=== PATIENT | female | born 1950 | race Caucasian/White ===

== ENCOUNTER 2023-08-22 17:02 | Emergency (ER) | payer MEDICARE, SELFPAY ==
--- NOTE | ~2023-08-22 | XR_ITS ---
Left wrist Technique: PA and lateral views were obtained. Clinical History: Injury Findings: There is an acute fracture the distal radius, probably transverse in orientation, with long itudinal fracture line extending to the articular surface. Fracture is minimally displaced overall, t camryn there is mild dorsal displacement of the dorsal fragment on lateral view. No other fracture shawn ntified. There is moderate to advanced degenerative change of the first CMC joint. Remaining joint sp aces are preserved. Soft tissues are unremarkable. Impression: Acute comminuted, mildly displaced fracture the distal radius with intra-articular extension, as deta iled above. Moderate to advanced degenerative change of the first CMC joint. Reviewed, dictated and finalized at location M. R PURIFIER Impression: Acute comminuted, mildly displaced fracture the distal radius with intra-articu lar extension, as detailed above. Moderate to advanced degenerative change of the first CMC joint.
--- NOTE | ~2023-08-22 | XR_ITS ---
EXAMINATION: XR wrist LT 2V DATE: 08/22/2023 22:36 INDICATION: Distal left radius fracture status post reduction. TECHNIQUE: 2 views of left wrist were obtained. COMPARISON: Left wrist radiographs 08/22/2023 FINDINGS: There is a comminuted fractures of distal radius with involvement of the distal articular s urface and distal radioulnar joint. The main distal fracture fragment demonstrates impaction and dors al angulation. There is 17 degrees dorsal tilt of the distal articular surface. There is severe osteo arthritis of triscaphe joint and first carpometacarpal joint. IMPRESSION: 1. Comminuted fracture of distal radius. 2. Polyarticular osteoarthritis. Reviewed, dictated and finalized at location A. S ORDER PROCESSOR
--- NOTE | ~2023-08-22 | XR_ITS ---
Left Hand Technique: PA, oblique, and lateral views were obtained. Clinical History: Injury Findings: No acute fracture or dislocation is seen in the hand itself. There is a comminuted mildly d isplaced fracture the distal radius. There is advanced degenerative change of the first CMC joint. Th ere is mild degenerative change of the DIP joints. Soft tissues are unremarkable. Impression: No fracture or dislocation of the hand itself. Comminuted, mildly displaced, intra-articular fracture of the distal radius. Please refer to separate ly reported wrist radiographic series for further details. Degenerative changes, as above. Reviewed, dictated and finalized at location M. LEAD Impression: No fracture or dislocation of the hand itself. Comminuted, mildly displaced, intra-articular fracture of the distal radius. Pl ease refer to separately reported wrist radiographic series for further details . Degenerative changes, as above.
--- NOTE | ~2023-08-22 | CT_ITS ---
Non-contrast Head CT History: Status post fall Technique: Axial non-contrast imaging of the brain was performed. Dose reduction technique was used on this scan by utilizing automated exposure control and iterative reconstruction technique. The dose -length product (DLP) was 681.00 mGy-cm. Findings: There is no evidence of intracranial hemorrhage, mass lesion, or acute infarct. Brain par enchyma appears normal. The ventricles and subarachnoid spaces are normal in size. The calvarium ap pears normal. The visualized paranasal sinuses and mastoid air cells are clear. There is left fronta l scalp soft tissue swelling. Impression: No intracranial abnormality seen. Left frontal scalp soft tissue swelling. Reviewed, dictated and finalized at location . ER DRIVER Impression: No intracranial abnormality seen. Left frontal scalp soft tissue swelling.
--- NOTE | ~2023-08-22 | CT_ITS ---
Noncontrast CT scan of the cervical spine Technique: Multiple contiguous axial [address] images of the cervical spine were obtained and rec onstructed in 2D sagittal and coronal planes on the acquisition scanner. Dose reduction technique was used on this scan by utilizing automated exposure control, adjustment of the mA and/or kV according to patient size. The dose-length product (DLP) was 433.45 mGy-cm. Clinical History: Pain Findings: No acute fracture. There is a 5 mm anterolisthesis of C7 over T1. There is 3 mm retrolisthe sis of C3 over C4. There is advanced degenerative disc narrowing throughout the cervical spine, relat ively sparing C2-C3. There is right neural foraminal narrowing at C3-C4 with mild disc osteophyte com plex and facet arthropathy present. Probable mild canal stenosis at C3-C4. There is bilateral neural foraminal narrowing at C4-C5, with mild facet arthropathy and mild disc osteophyte complex. There is severe left neural foraminal narrowing at C5-C6 with prominent left facet arthropathy. There is a pro bable bilateral neural foraminal narrowing at C6-C7 with mild disc osteophyte complex present. There is probable mild canal stenosis at C6-C7. No prevertebral soft tissue swelling. Impression: No acute fracture. 5 mm anterolisthesis of C7 over T1. 3 mm retrolisthesis of C3 over C4. Moderate to advanced degenerative spondylosis, as above. Reviewed, dictated and finalized at [facility]. GATION INSTALLATION SPECIALIST Impression: No acute fracture. 5 mm anterolisthesis of C7 over T1. 3 mm retrolisthesis of C3 over C4. Moderate to advanced degenerative spondylosis, as above.
[2023-08-22 17:10] VITALS: BP 196/114; PULSE 95; RESP 20; TEMP 36.6; O2SAT 96
--- NOTE | 2023-08-22 20:04 | ED.GENADULT ---
HPI - General Adult General Chief complaint: Fall Stated complaint: HEAD INJURY Time Seen by Provider: 08/22/23 19:21 History of Present Illness HPI narrative: This is a 73-year-old female presenting with a ground level fall. She tripped and hit her forehead on a step. No loss of consciousness. The use of blood thinners. Patient has noted some pins/needles sensation over her right deltoid. No altered mental status or persistent vomiting. She also has pain on her left wrist and hand with some deformity Related Data Allergies Allergy/AdvReac Type Severity Reaction Status Date / Time No Known Allergies Allergy Verified 08/22/23 20:22 [facility] Past Medical History Medical History Hypertension Exam Narrative: APPEARANCE: No apparent distress. Head: 1 cm laceration over the left hairline EYES: EOMI, NOSE: Atraumatic NECK: No midline tenderness RESPIRATORY: No increased rate of breathing, CTAB CARDIOVASCULAR: RRR, ABDOMINAL: Non-distended MUSCULOSKELETAl: No obvious deformities NEURO: Alert. Cranial nerves 2-12 grossly intact. Sensation light touch, motor function cerebellar function intact for 4 extremities. Gait exam was normal. SKIN:: Warm, dry. Normal color PSYCHIATRIC: Normal affect Course Vital Signs Vital signs: Vital Signs Temperature 97.9 F 08/22/23 17:10 Pulse Rate 95 08/22/23 17:10 Respiratory Rate 20 08/22/23 17:10 Blood Pressure 196/114 H 08/22/23 17:10 Pulse Oximetry 96 08/22/23 17:10 Oxygen Delivery Room Air 08/22/23 17:10 Temperature 97.9 F 08/22/23 17:10 Pulse Rate 95 08/22/23 17:10 Respiratory Rate 20 08/22/23 17:10 Blood Pressure 196/114 H 08/22/23 17:10 Pulse Oximetry 96 08/22/23 17:10 Oxygen Delivery Room Air 08/22/23 20:30 Procedures Laceration Laceration 1: Date: 08/22/23 Site: face Side (If applicable): left Size (cm): 2.5 Description: linear Depth: simple, single layer Local Anesthetic: lidocaine 1% and with epi Pre-repair: wound explored and irrigated ====== Skin Level ====== Skin layer closed with: prolene Size (cm): 5-0 Number of sutures: 4 Technique: simple, interrupted ====== Subcutaneous Layer ====== ====== Muscle Layer ====== ====== Tendon Layer ====== Laceration 2: Date: 08/22/23 Site: face Size (cm): 0.5 Description: linear Depth: simple, single layer ====== Skin Level ====== Skin layer closed with: dermabond ====== Subcutaneous Layer ====== ====== Muscle Layer ====== ====== Tendon Layer ====== Laceration 3: Date: 08/22/23 Site: hand Side (If applicable): left Size (cm): 1 Description: linear Depth: simple, single layer Local Anesthetic: lidocaine 1% and with epi Pre-repair: wound explored and irrigated extensively ====== Skin Level ====== Skin layer closed with: nylon Size (cm): 5-0 Number of sutures: 2 ====== Subcutaneous Layer ====== ====== Muscle Layer ====== ====== Tendon Layer ====== Orthopedic Splinting/Casting Injury #1: Splinting/Casting Date: 08/22/23 Side: left Upper Extremity Injury Location: forearm Upper Extremity Immobilizer: sugar tong splint OCL: sugar tong Pre-Procedure Neuro Vascular Exam: normal Post-Procedure Neuro Vascular Exam: normal Additional Comments: Sling Medical Decision Making MDM Narrative Medical decision making narrative: -Course: 73-year-old female presenting with a ground level fall. CT head and C-spine negative for acute injury. Patient was complaining of some intermittent paresthesias over her right deltoid but they are not reproducible with full ranging of her neck and she has no motor deficits. Steven
[2023-08-22] MEDS: ACETAMINOPHEN 500 MG TABLET 1000 MG PO (20:23)
[2023-08-22] MEDS: LIDO 1%/EPINEPHRINE 1:100,000 20 ML VIAL 10 ML INFILTRATE (23:00)
[2023-08-22] MEDS: TETANUS,DIPHTHERIA,AC PERTUSSIS ADULT (0.5 ML) BOOSTRIX IM (23:56)
[2023-08-23 00:08] VITALS: BP 178/89; PULSE 91; RESP 19; O2SAT 96
== END 2023-08-23 00:10 | disposition home or self-care (01) ==
PROVIDERS: Emergency Provider Emergency Medicine
DX: S52.502A Unspecified fracture of the lower end of left radius, initial encounter for closed fracture (principal); S01.81XA Laceration without foreign body of other part of head, initial encounter; S61.219A Laceration without foreign body of unspecified finger without damage to nail, initial encounter; I10 Essential (primary) hypertension; Z23 Encounter for immunization; W01.198A Fall on same level from slipping, tripping and stumbling with subsequent striking against other object, initial encounter
CPT/HCPCS: 12001; 12013; 29125; 70450; 72125; 73100; 73120; 90471; 90715; 99284; A4565; A9270